=== PATIENT | female | born 1940 | race Caucasian/White ===

== ENCOUNTER 2023-07-31 08:00 | Outpatient (CLI) | payer MEDICARE, OTHER ==
--- NOTE | 2023-07-31 16:50 | XRAY Report ---
PROCEDURE: Foot 3+V RT INDICATIONS: CALCANEAL SPUR OF RIGHT FOOT TECHNIQUE: 3 views of the foot were acquired. COMPARISON: None. FINDINGS: Bones: No fractures or dislocations. Moderate hallux valgus is seen. Moderate right foot joint oste oarthritic changes are noted. Tiny plantar and dorsal calcaneal enthesophytes are seen. No suspicious bony lesions. Soft tissues: No suspicious soft tissue calcifications or masses. IMPRESSION: No acute bony abnormality. Moderate hallux valgus and moderate right foot joint osteoarthritis. Tiny plantar and dorsal calcanea l enthesophytes. Reviewed by: Mihai Cesar MD on 07/31/2023 4:48 PM PST Approved by: Mihai Cesar MD on 07/31/2023 4:48 PM PST Station ID: [id number]
== END 2023-07-31 23:59 | disposition home or self-care (01) ==
LOC: DI.S 08:00
PROVIDERS: ATTEND Emergency Medicine
DX: M77.31 Calcaneal spur, right foot (principal); M19.071 Primary osteoarthritis, right ankle and foot; M20.11 Hallux valgus (acquired), right foot

== ENCOUNTER 2023-09-30 20:42 | Emergency (ER) | payer MEDICARE ==
[2023-09-30 21:26] VITALS: BP 156/78; O2SAT 100
--- NOTE | 2023-09-30 21:30 | Ultrasound Report ---
PROCEDURE: Duplex Ext Veins Right INDICATIONS: RLE swelling, elevated d-dimer TECHNIQUE: Real-time imaging, as well as color and pulse Doppler interrogation, were performed of the lower extr emity deep veins from the inguinal ligament to the popliteal fossa. Attempted visualization of the ca lf veins was performed. COMPARISON: None. FINDINGS: The deep veins are normally compressible, and free of intraluminal thrombus. Color and pu lse Doppler demonstrate normal phasic intraluminal flow. There is normal augmentation response to di stal compression maneuver. Free fluid in the right lateral malleolus measuring 1.1 x 0.6 x 1.4 cm. IMPRESSION: No deep venous thrombosis of the visualized lower extremity. Reviewed by: Cristóbal Romano MD on 09/30/2023 9:29 PM PDT Approved by: Cristóbal Romano MD on 09/30/2023 9:29 PM PDT Station ID: [id number]
--- NOTE | 2023-09-30 21:43 | ED Physician Documentation ---
History of Present Illness - Stated complaint Stated Complaint: RT LEG SWOLLEN - Chief complaint Chief Complaint: Ext Problem - History obtained from History obtained from: Patient - History of Present Illness Timing: How many days ago (5) Pain level max: 5 Pain level now: 4 - Additonal information Additional information: 83-year-old female was seen at a walk-in clinic today in [place]. Sent here for right ankle swelling for the past 5 days as well as an elevated D-dimer. Was sent for ultrasound to rule out DVT. Patient has no complaints of shortness of breath, chest pain, immobilization, surgery, prior history of blood clots. No redness. Does not recall any injuries. Has not fallen or hurt her ankle. States that she had an x-ray today that was normal. Review of Systems Constitutional: denies: Fever, Chills GI: denies: Vomiting, Diarrhea Skin: denies: Rash Musculoskeletal: denies: Neck pain, Back pain Neurologic: denies: Headache PD PAST MEDICAL HISTORY - Past Medical History Past Medical History: Yes Cardiovascular: Hypertension - Past Surgical History Past Surgical History: Yes Ortho: Knee replacement - Present Medications Home Medications: Ambulatory Orders Medication Instructions Recorded Confirmed Acetaminophen [Tylenol] 500 mg PO DAILY 09/30/23 09/30/23 Cholecalciferol [Vitamin D3] 25 mcg PO DAILY 09/30/23 09/30/23 Colchicine 0.6 mg PO DAILY 09/30/23 09/30/23 Lisinopril [Zestril] 2.5 mg PO DAILY 09/30/23 09/30/23 Simvastatin [Zocor] 20 mg PO DAILY 09/30/23 09/30/23 amLODIPine [Norvasc] 5 mg PO DAILY 09/30/23 09/30/23 hydroCHLOROthiazide [Hydrodiuril] 25 mg PO DAILY 09/30/23 09/30/23 - Allergies Allergies/Adverse Reactions: Allergies Allergy/AdvReac Type Severity Reaction Status Date / Time No Known Drug Allergies Allergy Verified 09/30/23 21:22 - Social History Does the pt smoke?: No Smoking Status: Never smoker Does the pt drink ETOH?: No Does the pt have substance abuse?: No PD ED PE NORMAL - Vitals Vital signs reviewed: Yes - General General: Alert and oriented X 3, No acute distress - HEENT HEENT: Moist mucous membranes - Neck Neck: Supple, no meningeal sign - Derm Derm: Warm and dry - Extremities Extremities: No calf tenderness / cord, Other (Mild swelling to the right ankle. No calf tenderness or cord. Negative Homans' sign.) - Neuro Neuro: Alert and oriented X 3 - Psych Psych: Normal mood, Normal affect Results - Vitals Vitals: Vital Signs - 24 hr 09/30/23 21:17 Temperature 36.5 C Heart Rate 71 Respiratory 16 Rate Blood Pressure 156/78 H O2 Saturation 100 Oxygen O2 Source Room air - Rads (name of study) Duplex ultrasound right lower extremity Relevant Findings:: Final report received, See rad report PD Medical Decision Making - ED course Complexity details: reviewed results, re-evaluated patient, considered differential, d/w patient ED course: No acute findings on ultrasound. No evidence of DVT. Has already had a negative x-ray today. No emergency medical condition at this time. No skin changes. No evidence of cellulitis. Possible osteoarthritis? We will have her follow-up with her doctor for further care. Patient counseled regarding signs and symptoms for which I believe and urgent re-evaluation would be necessary. I did speak with the provider from the walk-in clinic tonight and informed her of the negative ultrasound result. Patient with good understanding of and agreement to plan and is comfortable going home at this time This document was made in part using voice recognition software. While efforts are made to proofread this document, sound alike and grammatical errors may occur. Departure - Departure Disposition: 01 Home, Self Care Clinical Impression: Ankle swelling Qualifiers: Laterality: right Qualified Code(s): M25.471 - Effusion, right ankle Condition: Good Instructions: ED Leg Swelling Unilateral Follow-Up: Ernesto Truong MD [Primary Care Provider] - Within 1 week Comments: Thankfully your ultrasound does not show any evidence of blood clot in your leg. You do have a little area of free fluid in exterior lateral malleolus, this can be seen in arthritis, inflammation or ankle sprains. It sounds as if your x-ray at the walk-in clinic today was normal. Please follow-up with your doctor for further care. EXAM: [id number] US/VENR ([id number]) PROCEDURE: Duplex Ext Veins Right INDICATIONS: RLE swelling, elevated d-dimer TECHNIQUE: Real-time imaging, as well as color and pulse Doppler interrogation, were performed of the lower extremity deep veins from the inguinal ligament to the popliteal fossa. Attempted visualization of the calf veins was performed. COMPARISON: None. FINDINGS: The deep veins are normally compressible, and free of intraluminal thrombus. Color and pulse Doppler demonstrate normal phasic intraluminal flow. There is normal augmentation response to distal compression maneuver. Free fluid in the right lateral malleolus measuring 1.1 x 0.6 x 1.4 cm. IMPRESSION: No deep venous thrombosis of the visualized lower extremity. Forms: PCP List
== END 2023-09-30 21:51 | disposition home or self-care (01) ==
LOC: ED 20:42
DX: M25.471 Effusion, right ankle (principal); I10 Essential (primary) hypertension; Z79.899 Other long term (current) drug therapy
CPT/HCPCS: 99283; 99284